=== PATIENT | female | born 1945 | race Caucasian/White ===

== ENCOUNTER 2022-07-06 15:57 | Outpatient (CLI) | payer MEDICARE, OTHER, SELFPAY ==
--- NOTE | 2022-07-06 16:26 | ECG_ITS ---
Measurements Intervals [place] Rate: 83 P: 52 ND: 166 QRS: -11 QRSD: 82 T: 25 QT: 363 QTc: 428 Interpretive Statements SINUS RHYTHM POSSIBLE LEFT ATRIAL ENLARGEMENT LOW QRS VOLTAGE IN PRECORDIAL LEADS BASELINE WANDER- III, AVF BORDERLINE ECG NO PREVIOUS ECG AVAILABLE FOR COMPARISON Electronically Signed On 07-06-2022 21:08:46 CDT by Silvano Rayo D.O.
[2022-07-06 16:29] LABS: Basophils Percent Auto 0.4 % (0.2-1.2); Eosinophils Absolute Auto 0.1 K/mm3 (0-0.3); Hematocrit 40.4 % (37.0-47.0); Hemoglobin 13.2 g/dL (12.0-15.0); Immature Granulocyte Absolute 0.03 K/mm3 (0.00-0.031); Immature Granulocyte Percent A 0.3 % (0-0.5); Lymphocytes Absolute Auto 2.44 K/mm3 (0.9-3.2); Lymphocytes Percent Auto 26.9 % (18.3-44.2); Mean Corpuscular HGB Conc 32.7 g/dl (32-36); Mean Corpuscular Hemoglobin 27.8 pg (26-34); Mean Corpuscular Volume 85.1 fl (80-100); Mean Platelet Volume 10.9 fl (7.4-10.4); Monocytes Absolute Auto 1.1 K/mm3 (0.1-0.6); Neutrophils Absolute Auto 5.4 K/mm3 (1.3-6.7); Neutrophils Percent Auto 59.4 % (45.5-73.1); Platelet Count Result 194 k/mm3 (150-375); Red Blood Count 4.75 M/mm3 (4.2-5.4); Red Cell Distribution Width 14.2 % (11.5-14.5); White Blood Count 9.1 K/mm3 (4.5-10.0)
[2022-07-06 16:30] LABS: Appearance Urine Clear (Clear); Bilirubin Urine Negative (Negative); Blood Urine Negative (Negative); Color Urine Yellow (Yellow); Glucose Urine UA Negative (Negative); Ketones Urine Negative (Negative); Leukocyte Esterase Ur Negative LEU/UL (Negative); Nitrate Urine Negative (Negative); Protein Urine Negative (Negative); Specific Grav Ur 1.007 (1.001-1.035); Urobilinogen Urine 0.2 mg/dL (<2.0); pH Urine 7.5 (5.0-9.0)
[2022-07-06 16:40] LABS: Add Urine Microscopic? NO
[2022-07-06 16:48] LABS: Anion Gap 7 mmol/L (8-16); Blood Urea Nitrogen 14 mg/dL (7-17); Calcium 9.3 mg/dL (8.4-10.2); Carbon Dioxide 27 mmol/L (22-30); Chloride 101 mmol/L (98-107); Estimated Glomerular Filt Rate > 60; Glucose 101 mg/dL (65-110); Sodium 135 mmol/L (137-145)
== END 2022-07-06 15:58 | disposition home or self-care (01) ==
PROVIDERS: PCP Family Medicine; Visit Provider Nurse Practitioner Family
DX: M17.12 Unilateral primary osteoarthritis, left knee (principal); M25.569 Pain in unspecified knee; M17.11 Unilateral primary osteoarthritis, right knee
CPT/HCPCS: 36415; 80048; 81003; 85025; 93005

== ENCOUNTER 2022-11-29 12:00 | Outpatient (CLI) | payer MEDICARE, OTHER, SELFPAY ==
[2022-11-29 13:41] LABS: Basophils Percent Auto 0.3 % (0.2-1.2); Eosinophils Absolute Auto 0.1 K/mm3 (0-0.3); Eosinophils Percent Auto 0.8 % (0-4.4); Hematocrit 36.5 % (37.0-47.0); Hemoglobin 11.9 g/dL (12.0-15.0); Immature Granulocyte Absolute 0.04 K/mm3 (0.00-0.031); Immature Granulocyte Percent A 0.5 % (0-0.5); Lymphocytes Absolute Auto 1.46 K/mm3 (0.9-3.2); Lymphocytes Percent Auto 18.7 % (18.3-44.2); Mean Corpuscular HGB Conc 32.6 g/dl (32-36); Mean Corpuscular Hemoglobin 28.8 pg (26-34); Mean Corpuscular Volume 88.4 fl (80-100); Mean Platelet Volume 10.5 fl (7.4-10.4); Monocytes Percent Auto 13.3 % (2.6-8.5); Neutrophils Absolute Auto 5.2 K/mm3 (1.3-6.7); Neutrophils Percent Auto 66.4 % (45.5-73.1); Platelet Count Result 171 k/mm3 (150-375); Red Blood Count 4.13 M/mm3 (4.2-5.4); Red Cell Distribution Width 13.5 % (11.5-14.5); White Blood Count 7.8 K/mm3 (4.5-10.0)
[2022-11-29 13:47] LABS: Appearance Urine Clear (Clear); Bilirubin Urine Negative (Negative); Blood Urine Negative (Negative); Color Urine Yellow (Yellow); Glucose Urine UA Negative (Negative); Ketones Urine Negative (Negative); Leukocyte Esterase Ur Negative LEU/UL (Negative); Nitrate Urine Negative (Negative); Protein Urine Negative (Negative); Specific Grav Ur 1.014 (1.001-1.035); Urobilinogen Urine 0.2 mg/dL (<2.0)
[2022-11-29 13:50] LABS: Prothrombin Time 14.2 Seconds (11.1-14.7)
[2022-11-29 13:53] LABS: Albumin Level 4.2 g/dL (3.5-5.1); Anion Gap 7 mmol/L (8-16); Blood Urea Nitrogen 19 mg/dL (7-17); Calcium 8.8 mg/dL (8.4-10.2); Carbon Dioxide 27 mmol/L (22-30); Chloride 99 mmol/L (98-107); Estimated Glomerular Filt Rate 53; Glucose 100 mg/dL (65-110); Potassium 4.1 mmol/L (3.4-5.0); Sodium 133 mmol/L (137-145)
[2022-11-29 13:55] LABS: Hemoglobin A1C 5.3 % (<5.7)
[2022-11-29 13:57] LABS: Urine Cotinine NEGATIVE
[2022-11-29 13:59] LABS: Add Urine Microscopic? NO
== END 2022-11-29 12:01 | disposition home or self-care (01) ==
LOC: ANHSURGERY 12:08
PROVIDERS: PCP Family Medicine; Visit Provider Orthopaedic Surgery
DX: M17.12 Unilateral primary osteoarthritis, left knee (principal); Z01.818 Encounter for other preprocedural examination
CPT/HCPCS: 80048; 80307; 81003; 82040; 83036; 85025; 85610; 85730; 86850; 86900; 86901; 87081

== ENCOUNTER 2022-12-13 15:17 | Inpatient (IN) | payer MEDICARE, OTHER, SELFPAY ==
[2022-11-29 12:15] VITALS: BMI 37.8
--- NOTE | 2022-11-29 12:49 | PC.NURSE ---
Addendum entered by Kellen Jacobson RN 11/29/22 13:00: USE BREO INHALER THE MORNING OF SURGERY Original Note: Report to the Outpatient Waiting Room, entrance under the [facility] pavilion located off [facility], at time ___0900____ on date __12/12/22 . Planned Procedure Time: __1100 . Time changes happen often and if your time is changed the preop area will call you the afternoon before. - You and your visitor will be asked to self-screen and do not enter if you have any COVID symptoms. - A mask is optional within the hospital at this time. Patients may have clear liquids (water, carbonated beverages, clear teas, apple juice) until 3 hours prior to surgery with a maximum of 20 ounces. - No food from midnight until time of surgery - Infants may have breast milk until 4 hours before surgery, infant formula 6 hours prior to surgery. - Children will be allowed to drink immediately following surgery. If applicable, please bring a bottle or sippy cup to assist with drinking. Juice, water, soda, and popsicles are readily available. For infants on formula, please bring formula the day of surgery. Pacifiers are allowed. Take the following medications with a SIP of water the morning of surgery: ____GABAPENTIN,SERTRALNE DO NOT STOP ANY OF YOUR OTHER PRESCRIPTION MEDICATIONS PRIOR TO SURGERY ?EXCEPT THE FOLLOWING Medications to discontinue per physician __MELOXICAM PER DR ARMSTRONG, ALL VITAMINS AND SUPPLEMENTS 3 DAYS PRE OP. LAST DOSE 12/08/22 __ Please no make-up, nail micronesian, hairspray, perfume, deodorant, or body powder the day of surgery. No jewelry (including any body piercings) or valuables the day of surgery, leave them at home. Please take a shower or bath the night before, or the morning of, surgery with an antibacterial soap. Wear comfortable, loose fitting clothing. Children are encouraged to wear pajamas. - Jewelry must be removed prior to entering the operating room. Rings and piercings that are not removed may be cut off. - The hospital will not accept responsibility for valuables. - Please leave all valuables, including medications, at home the day of surgery. If you are going home after surgery, a licensed truck driver rubbish collector must drive you home. - NO public transportation without another adult if you receive anesthesia. - We recommend that an adult stay with you for 24 hours following discharge. - We also recommend that you do not drive, make important decision, drink alcoholic beverages, or take any drugs that were not prescribed by your health care provider for at least 24 hours after your discharge time. For Pediatric surgeries, we recommend two adults accompany the child home. Follow any additional instructions given to you from your surgeon. If you or anyone in your household have experienced Covid symptoms in the past week, please notify your surgeon or the nurse liaison at the phone number below for possible testing. VERBAL AND WRITTEN instructions given to __PATIENT AND DAUGHTER PABLITO and asked if any additional questions and then verbalized understanding. Patient advised to call surgeon office or pre surgery nurse liaison [phone] if any additional questions.
[2022-11-29 13:10] VITALS: BP 126/62; PULSE 74; RESP 18; TEMP 36.7; O2SAT 96
[2022-12-12] VITALS (11 sets, daily range): BP systolic 111–159; BP diastolic 52–89; PULSE 78–105; RESP 16–20; TEMP 36.4–36.8; O2SAT 93–100
--- NOTE | 2022-12-12 07:20 | WPDHPUPDATE1 ---
History and Physical Update Update Date/Time: 12/12/22 07:20 History and Physical has been reviewed, including an updated exam of the patient. There are NO changes in the patient's condition. Risks, benefits, and alternatives have been discussed and questions answered. Patient agrees to proceed with procedure.
[2022-12-12] MEDS: LACTATED RINGERS 1,000 ML 30 ML IV CONT ×2 (10:15→14:50)
[2022-12-12] MEDS: ACETAMINOPHEN 500 MG TABLET 1000 MG PO (11:14)
[2022-12-12] MEDS: TRANEXAMIC ACID 1,000MG/ISO100 1,000 MG/100 ML BAG 200 MG IVPB (11:14)
--- NOTE | 2022-12-12 11:41 | WPDANESEPPF ---
Anes - Initial Pre Proc Eval Procedure: Operation Date: 12/12/22 11:00 Proposed Procedures p Left Total Knee Arthroplasty - Natanael Key MD Date/Time: 12/12/22 11:41 Surgeon: Natanael Key MD Pre Op Diagnosis: left knee DJD Patient Data Age: 77 Gender: F Height: 1.6 m Weight: 95.8 kg Last Vital Signs Temp 36.6 C 12/12/22 09:30 Pulse 78 12/12/22 09:30 Resp 18 12/12/22 09:30 BP 151/60 H 12/12/22 09:30 Pulse Ox 96 12/12/22 09:30 O2 Del Method Room Air 12/12/22 09:30 Allergies Allergy/AdvReac Type Severity Reaction Status Date / Time No Known Allergies Allergy Verified 12/12/22 11:16 Home Medications Medication Instructions Recorded Confirmed Type ascorbic acid (vitamin C) 1,000 mg 1 g PO DAILY 07/20/21 12/12/22 History tablet atorvastatin 40 mg tablet 40 mg PO HS 07/20/21 12/12/22 History calcium carbonate 600 mg calcium 600 mg PO DAILY 07/20/21 12/12/22 History (1,500 mg) tablet cetirizine 10 mg capsule (Zyrtec) 10 mg PO DAILY PRN Allergy Symptoms 07/20/21 12/12/22 History fluticasone furoate 100 1 inh inhalation DAILY 07/20/21 12/12/22 History mcg-vilanterol 25 mcg/dose inhalation powder (Breo Ellipta) glucosamine sulfate 500 mg capsule 500 mg PO DAILY 07/20/21 12/12/22 History montelukast 10 mg tablet 10 mg PO DAILY 07/20/21 12/12/22 History jfskbqay-kyxv-pjxh 8 mg-folic 400 1 tablet PO DAILY 07/20/21 12/12/22 History mcg-K 50 mcg-lutein 300 mcg tablet (Centrum Silver Women) omeprazole 40 mg capsule,delayed 40 mg PO DAILY 07/20/21 12/12/22 History release sertraline 100 mg tablet 100 mg PO DAILY 07/20/21 12/12/22 History triamterene 37.5 1 cap PO DAILY 07/20/21 12/12/22 History mg-hydrochlorothiazide 25 mg capsule meloxicam 7.5 mg tablet See Rx Instructions .Route 10/31/22 12/12/22 Rx .COMPLEX #60 tabs acetaminophen 650 mg 1,300 mg PO Q12H PRN Pain 11/29/22 12/12/22 History tablet,extended release cyanocobalamin (vitamin B-12) 5,000 mcg PO DAILY 11/29/22 12/12/22 History 5,000 mcg capsule gabapentin 100 mg capsule 100 mg PO TID 11/29/22 12/12/22 History trazodone 50 mg tablet 50 mg PO HS 11/29/22 12/12/22 History chlorhexidine gluconate 4 % 1 applic topical DAILY #237 mL 12/05/22 12/12/22 Rx topical liquid (Hibiclens) Patient hx anesthesia problems: none Family hx anesthesia problems: none Results Review: All pre-operative results and documents have been reviewed as part of the pre-operative evaluation. [facility] Past Medical History Medical History (Updated 12/12/22 @ 11:41 by Hakeem Lowery MD) Left knee DJD Obesity Right knee DJD Surgical History Surgical History History of breast surgery Benign tumor removed from R breast, 1970 History of carpal tunnel surgery B, performed at the same time, 2001 History of cataract surgery B surgery, [facility], 2014 History of hysterectomy Left ovary not removed, 1981 History of knee surgery L knee, bone fragment removed, 1995 History of spinal surgery Fusion of L3-L5/tail bone, 04/28/2019, Dr. Severiano Talley, [place]. Removal of herniated C5 and C6 discs, Dr. Sam Santoyo, [place], 1999 History of total right hip arthroplasty Dr. Kelton Velasquez, [place], [place], 09/14/2016 Social History Social History Smoking packs per day: 2 Smoking cigarettes per day: 40.0 Years smoked: 10 Smoking pack-years: 20.00 Smoking status: Former smoker Tobacco type: cigarettes Smoking end date: 02/27/72 Additional smoking assessment comments: DENIES ANY FORM OF TOBACCO USE Alcohol intake: current Drinks per week: 1 Substance use: unknown Living arrangements: alone Occupation/Education: retired Gender identity (if verbalized by the patient): Female Spiritual care concerns: No Anes - Eval Final PreProcedure Day of Procedure 12/12/22
[2022-12-12] MEDS: ceFAZolin 2 GM/D5W 50 ML 2 GM/50 ML BAG IVPB ×2 (12:13→21:09)
[2022-12-12] MEDS: GENTAMICIN BONE CEMENT REFOBACIN 1 EACH TOPICAL (13:10)
[2022-12-12] MEDS: TRANEXAMIC ACID 1,000 MG/10 ML AMPUL 1000 MG IV PUSH (13:54)
--- NOTE | 2022-12-12 14:46 | W.PM.PROC2 ---
Procedure Note - Detailed Date of Procedure 12/12/22 Pre-op Diagnosis left knee DJD Post-op Diagnosis Same Procedure Performed L TKA Surgeon Natanael Key MD Anesthesia General Description of Procedure THE LEFT KNEE WAS PREPPED AND DRAPED IN THE STERILE FASHION. THERE WAS A 20 DEGREE FLEXION CONTRACTURE. A MIDLINE SKIN INCISION WAS MADE. A MEDIAL PARAPATELLAR ARTHROTOMY WAS MADE. THE PATELLA WAS EVERTED. THERE WAS TRICOMPARTMENT DJD. THERE WAS MINIMAL PATELLA DJD. AN INTRAMEDULLARY NEGRO WAS PLACED IN THE FEMUR. A DISTAL FEMORAL CUT WAS MADE IN 5 DEGREES OF VALGUS REMOVING APPROXIMATELY 11 MM OF BONE FROM THE DISTAL FEMUR. THE FEMUR WAS SIZED TO 62.5. A 62.5 FEMORAL CUTTING BLOCK WAS PLACED IN 3 DEGREES OF EXTERNAL ROTATION AND IN ALIGNMENT WITH RAMESH'S LINE AND THE TRANSEPICONDYLAR AXIS. ANTERIOR POSTERIOR AND CHAMFER CUTS WERE MADE. THE CUTS WERE EXCELLENT. NEXT AN INTRAMEDULLARY CUTTING GUIDE WAS PLACED IN THE TIBIA. A TRANS TIBIAL CUT WAS MADE ALONG THE LONG AXIS OF THE TIBIA. APPROXIMATELY 10 MM OF BONE WAS REMOVED FROM THE HIGH SIDE OF THE TIBIA. THE TIBIA WAS THEN PLANED TO A SMOOTH SURFACE. POSTERIOR FEMORAL OSTEOPHYTES WERE REMOVED FROM THE FEMORAL CONDYLES. A 71 TIBIAL TRIAL WAS PLACED IN ALIGNMENT WITH THE 1/3 MEDIAL ASPECT OF THE TIBIAL TUBERCLE. THEN A 62.5 FEMORAL TRIAL COMPONENT WAS PLACED. BOTH HAD EXCELLENT FITS. EVENTUALLY A 10 MM CR POLYETHYLENE TRIAL COMPONENT WAS PLACED. THE KNEE WAS TAKEN THROUGH A RANGE OF MOTION. THE KNEE CAME OUT TO FULL EXTENSION. THERE WAS NO ABNORMAL TILT TO THE PATELLA. THERE WAS GOOD A/P AND VARUS/VALGUS STABILITY. THERE WAS NO EXCESSIVE ROLL BACK WITH FLEXION. THE TRIAL COMPONENTS WERE REMOVED. THEN A 62.5 FEMORAL COMPONENT AND 71 TIBIAL COMPONENT WITH A 10 CR POLYETHYLENE COMPONENT WERE CEMENTED INTO PLACE. ONCE THE CEMENT WAS HARD THE KNEE WAS TAKEN THROUGH A ROM AGAIN AND FOUND TO BE STABLE WITH NO PATELLA TILT NO EXCESSIVE ROLL BACK WITH FLEXION AND GOOD STABILITY WITH COMPLETE AND FULL EXTENSION. THE KNEE WAS IRRIGATED WITH STERILE BETADINE AND WATER FOR ABOUT 3 MINUTES. THE BLEEDERS WERE CAUTERIZED. THE ARTHROTOMY WAS REPAIRED WITH NUMBER 1 VICRYL. THE SUB CUTANEOUS LAYER WITH 2-0 VICRYL AND THE SKIN WITH JEN. THE WOUND WAS WASHED AND A STERILE DRESSING WAS APPLIED. PATIENT WAS EXTUBATED. Estimated Blood Loss -150.0 Pathology None sent Complications No immediate complications Condition Stable Disposition PACU
[2022-12-12] MEDS: fentaNYL CITRATE INJ (*CRX) 100 MCG/2 ML VIAL 25 MCG IV PUSH ×5 (14:58→15:53)
--- NOTE | 2022-12-12 16:34 | ADMGEN ---
This patient, Olivia Sanches, was admitted to Medical Room 258-01. Patient/family oriented to hospital policies and general routines including ID bracelet, bed and alarms, visiting hours, pain management, procedures, bathroom and other care routines, personal items, smoking policy, room service/diet, and visiting hours. Information on how to activate the Rapid Response Team has been discussed. Patient/Family are encouraged to report perceived risks to care and to ask questions if they do not understand what they are told or what they should do.
[2022-12-12] MEDS: CELECOXIB 200 MG CAPSULE PO (17:23)
[2022-12-12] MEDS: oxyCODONE/ACETAMINOPHEN (*CRX) 5-325 MG TABLET 1 TABLET PO (17:24)
[2022-12-12] MEDS: ASPIRIN 325 MG ENTERIC TABLET PO (21:09)
[2022-12-12] MEDS: traZODone HCL 50 MG TABLET PO (21:09)
[2022-12-12] MEDS: FAMOTIDINE 20 MG TABLET PO (21:09)
[2022-12-12] MEDS: ATORVASTATIN 40 MG TABLET PO (21:09)
[2022-12-13] VITALS (9 sets, daily range): BP systolic 104–144; BP diastolic 42–67; PULSE 88–95; RESP 16–20; TEMP 36.5–37; O2SAT 92–98
--- NOTE | ~2022-12-13 | CT_ITS ---
EXAMINATION: CT abdomen pelvis w con INDICATION: Lower abdominal pain and cramping TECHNIQUE: Computed tomographic images of the abdomen and pelvis were obtained after the administrati on of 100 cc of Omnipaque 350 intravenous contrast. The dose-length product (DLP) was 1166.18 mGy-cm. Automated exposure control and iterative reconstruction technique were employed. COMPARISON: None available FINDINGS: Minimal dependent atelectasis is present in the lung bases. The heart size is normal. Punct ate calcifications in an otherwise normal spleen likely represent healed granulomatous disease. The l iver, pancreas, and adrenal glands are normal. The gallbladder is mildly distended. There appears to be adenomyomatosis of the gallbladder fundus. The kidneys are unremarkable. No pathologically enlarge d abdominal or pelvic lymph nodes are identified. No free intraperitoneal gas or evidence of bowel ob struction. Colonic diverticulosis is present without evidence of diverticulitis. The appendix is norm al. There is severe lumbar spondylosis. There are changes of posterior fusion and laminectomy from L3 through S1. A right total hip arthroplasty is noted. There is an umbilical hernia containing fat. There is a moderate amount of inflammatory change in the flexor musculature of the partially visualiz ed left leg. There are foci of gas in the muscle and fat. IMPRESSION: 1. Moderate inflammatory change in the flexor musculature of the partially visualized left leg includ ing foci of gas in the muscles and fat planes. Finding could reflect intramuscular abscess versus mitra nge from recent total knee arthroplasty. Recommend surgical evaluation and close clinical monitoring for compartment syndrome. These findings and recommendations were discussed with PITO Arreola on [place] at 1945 hours on 12/14/2022. 2. Mild gallbladder distention which could be due to fasting state. Correlate for right upper quadran t tenderness. Reviewed, dictated and finalized at location F. IMPRESSION: 1. Moderate inflammatory change in the flexor musculature of the partially visu alized left leg including foci of gas in the muscles and fat planes. Finding co uld reflect intramuscular abscess versus change from recent total knee arthropl asty. Recommend surgical evaluation and close clinical monitoring for compartme nt syndrome. These findings and recommendations were discussed with PITO Arreola on [address] [place] [address] at 1945 hours on 12/14/2022. 2. Mild gallbladder distention which could be due to fasting state. Correlate f or right upper quadrant tenderness.
--- NOTE | ~2022-12-13 | XR_ITS ---
EXAMINATION: [id number] DATE: 12/12/2022 14:59 INDICATION: Total left knee arthroplasty. Postop. TECHNIQUE: 2 views of left knee were obtained. COMPARISON: Left knee radiographs 11/13/2022 FINDINGS: There is a total left knee arthroplasty in near-anatomic alignment without patellar resurfa cing. No fracture. There is gas in the joint and soft tissues, consistent with recent surgery. Anteri or skin geovany are noted. IMPRESSION: 1. Total left knee arthroplasty in near-anatomic alignment. Reviewed, dictated and finalized at location E.
[2022-12-13 05:15] LABS: Basophils Percent Auto 0.1 % (0.2-1.2); Hematocrit 31.3 % (37.0-47.0); Immature Granulocyte Absolute 0.15 K/mm3 (0.00-0.031); Immature Granulocyte Percent A 0.7 % (0-0.5); Lymphocytes Absolute Auto 1.47 K/mm3 (0.9-3.2); Lymphocytes Percent Auto 6.5 % (18.3-44.2); Mean Corpuscular HGB Conc 31.9 g/dl (32-36); Mean Corpuscular Hemoglobin 28.2 pg (26-34); Mean Corpuscular Volume 88.4 fl (80-100); Mean Platelet Volume 10.9 fl (7.4-10.4); Monocytes Absolute Auto 2.1 K/mm3 (0.1-0.6); Monocytes Percent Auto 9.4 % (2.6-8.5); Neutrophils Absolute Auto 18.9 K/mm3 (1.3-6.7); Neutrophils Percent Auto 83.3 % (45.5-73.1); Platelet Count Result 194 k/mm3 (150-375); Red Blood Count 3.54 M/mm3 (4.2-5.4); Red Cell Distribution Width 13.2 % (11.5-14.5); White Blood Count 22.6 K/mm3 (4.5-10.0)
[2022-12-13 05:29] LABS: Anion Gap 6 mmol/L (8-16); Blood Urea Nitrogen 16 mg/dL (7-17); Calcium 8.8 mg/dL (8.4-10.2); Carbon Dioxide 27 mmol/L (22-30); Chloride 98 mmol/L (98-107); Estimated CRCL calculation 55 ml/min; Estimated Glomerular Filt Rate > 60; Glucose 116 mg/dL (65-110); Potassium 3.9 mmol/L (3.4-5.0); Sodium 131 mmol/L (137-145)
[2022-12-13] MEDS: ceFAZolin 2 GM/D5W 50 ML 2 GM/50 ML BAG IVPB ×2 (05:37→12:14)
[2022-12-13] MEDS: CYANOCOBALAMIN 1,000 MCG TABLET 5000 MCG PO (08:31)
[2022-12-13] MEDS: SENNA/DOCUSATE SODIUM TABLET 2 TAB PO ×2 (08:31→16:36)
[2022-12-13] MEDS: TRIAMTERENE 37.5 MG/HCTZ 25 MG (MAXZIDE) TABLET 1 TAB PO (08:32)
[2022-12-13] MEDS: ASCORBIC ACID 500 MG TABLET 1000 MG PO (08:32)
[2022-12-13] MEDS: SERTRALINE HCL 50 MG TABLET 100 MG PO (08:32)
[2022-12-13] MEDS: CALCIUM CARBONATE (OSCAL) 500 MG TABLET PO (08:32)
[2022-12-13] MEDS: ASPIRIN 325 MG ENTERIC TABLET PO (08:32)
[2022-12-13] MEDS: CELECOXIB 200 MG CAPSULE PO ×2 (08:32→16:36)
[2022-12-13] MEDS: PANTOPRAZOLE 40 MG TABLET PO ×2 (08:33→20:07)
[2022-12-13] MEDS: oxyCODONE/ACETAMINOPHEN (*CRX) 5-325 MG TABLET 1 TABLET PO (08:33)
[2022-12-13] MEDS: FAMOTIDINE 20 MG TABLET PO ×2 (08:33→20:07)
[2022-12-13] MEDS: polyethylene glycoL 3350 17 GM POWD.PACK PO (08:34)
--- NOTE | 2022-12-13 10:08 | P.PNAN_ITS ---
Anes - Prog Note Post-Op Date/Time: 12/13/22 10:08 Cardiovascular status: normal Respiratory status: normal Airway patency: baseline Mental status: baseline Post-Op hydration status: normal Vital Signs: Last Vital Signs Temp 36.9 C 12/13/22 04:03 Pulse 90 12/13/22 08:29 Resp 20 12/13/22 04:03 BP 144/55 H 12/13/22 08:29 Pulse Ox 93 12/13/22 08:29 O2 Del Method Room Air 12/13/22 08:21 O2 Flow Rate 10 12/12/22 15:20 Pain Score (VAS): 0 I/O: Intake & Output 12/12/22 12/13/22 12/13/22 23:59 07:59 15:59 Intake Total 450 360 Output Total 75 Balance 375 360 Laboratory Tests 12/13/22 04:54 12/13/22 04:54 12/13/22 04:54 WBC 22.6 H RBC 3.54 L Hgb 10.0 L Hct 31.3 L MCV 88.4 MCH 28.2 MCHC 31.9 L RDW 13.2 Plt Count 194 MPV 10.9 H Immature Gran % (Auto) 0.7 H Neut % (Auto) 83.3 H Lymph % (Auto) 6.5 L Benson % (Auto) 9.4 H Eos % (Auto) 0.0 Baso % (Auto) 0.1 L Lymph # (Auto) 1.47 Benson # (Auto) 2.1 H Eos # (Auto) 0.0 Baso # (Auto) 0.0 Abs Immat Gran (auto) 0.15 H Absolute Neuts (auto) 18.9 H Absolute Nucleated RBC 0.0 Nucleated RBC % 0.0 Sodium 131 L Potassium 3.9 Chloride 98 Carbon Dioxide 27 Anion Gap 6 L BUN 16 Creatinine 0.80 Estim Creat Clear Calc 55 Estimated GFR > 60 Glucose 116 H Calcium 8.8 Post-procedural complaints: none Patient Feedback: Patient satisfied with anesthetic care.
[2022-12-13] MEDS: oxyCODONE/ACETAMINOPHEN (*CRX) 5-325 MG TABLET 2 TABLET PO (12:49)
[2022-12-13] MEDS: GABAPENTIN 100 MG CAPSULE PO ×2 (13:33→16:36)
--- NOTE | 2022-12-13 14:13 | PM.PNORT ---
Progress Note: A&P Assessment and Plan (1) Left knee DJD: Qualifiers: Osteoarthritis type: primary Qualified Code(s): M17.12 - Unilateral primary osteoarthritis, left knee Code(s): M17.12 - Unilateral primary osteoarthritis, left knee Status: Acute Assessment and Plan: POD 1 DOING WELL BUT WITH SLOW PROGRESS WITH PT. SHE WILL BE REEVALUATED TOMORROW FOR POSSIBLE REHAB VS SNF. Subjective Subjective Date/Time Seen: 12/13/22 14:13 Interval history: POD 1 DOING WELL. SLOW PROGRESS WITH PT. NO CALF PAIN Exam Extrem: Other: VSS AFEBRILE DRESSING DRY NV INTACT NEG HOMANS SIGN CALF AND THIGH SOFT NON TENDER Objective Data Vital Signs Vital Signs: Vital Signs - 24 hr 12/12/22 14:50 12/12/22 15:05 12/12/22 15:20 Temperature 36.7 C Pulse Rate 104 H 105 H 98 Respiratory Rate 18 16 18 Blood Pressure 149/89 H 159/73 H 149/68 H Pulse Oximetry 98 100 100 Oxygen Delivery Simple Face Mask Simple Face Mask Simple Face Mask Oxygen Flow Rate 10 10 10 12/12/22 15:35 12/12/22 15:50 12/12/22 16:05 Temperature 36.8 C Pulse Rate 91 85 91 Respiratory Rate 18 16 16 Blood Pressure 143/69 H 139/58 L 133/63 Pulse Oximetry 96 95 95 Oxygen Delivery Room Air Room Air Room Air Oxygen Flow Rate 12/12/22 16:52 12/12/22 17:09 12/12/22 18:02 Temperature 36.4 C L 36.6 C Pulse Rate 83 95 Respiratory Rate 16 16 Blood Pressure 128/62 111/52 L Pulse Oximetry 93 96 95 Oxygen Delivery Room Air Oxygen Flow Rate 12/12/22 21:55 12/13/22 00:10 12/12/22 20:00 Temperature 36.4 C 37.0 C Pulse Rate 91 92 Respiratory Rate 20 20 Blood Pressure 121/58 L 104/44 L Pulse Oximetry 97 98 Oxygen Delivery Room Air Oxygen Flow Rate 12/13/22 04:03 12/13/22 08:29 12/13/22 08:21 Temperature 36.9 C Pulse Rate 95 90 Respiratory Rate 20 Blood Pressure 128/51 L 144/55 H Pulse Oximetry 97 93 Oxygen Delivery Room Air Oxygen Flow Rate 12/13/22 10:24 12/13/22 12:48 12/13/22 08:30 Temperature 36.8 C Pulse Rate 95 Respiratory Rate 16 Blood Pressure 119/47 L 136/67 Pulse Oximetry 96 Oxygen Delivery Room Air Oxygen Flow Rate Intake/Output Intake/Output: Intake & Output 12/10/22 12/11/22 12/12/22 12/13/22 23:59 23:59 23:59 23:59 Intake Total 600 530 Output Total 75 Balance 525 530 Meds/Results Medications: Active Medications Generic Name Dose Route Start Last Admin Trade Name Freq PRN Reason Stop Dose Admin Ascorbic Acid 1,000 mg 12/13/22 09:00 12/13/22 08:32 Ascorbic Acid 500 Mg Tablet PO 1,000 mg DAILY NELLIE Administration Aspirin 325 mg 12/12/22 21:00 12/13/22 08:32 Aspirin 325 Mg Enteric Tablet PO 325 mg Q12HR NELLIE Administration Atorvastatin Calcium 40 mg 12/12/22 21:00 12/12/22 21:09 Atorvastatin 40 Mg Tablet PO 40 mg HS NELLIE Administration Calcium Carbonate 500 mg 12/13/22 09:00 12/13/22 08:32 Calcium Carbonate (Oscal) 500 Mg Tablet PO 01/12/23 08:59 500 mg DAILY NELLIE Administration Celecoxib 200 mg 12/12/22 17:00 12/13/22 08:32 Celecoxib 200 Mg Capsule PO 200 mg BIDWM NELLIE Administration Cyanocobalamin 5,000 mcg 12/13/22 09:00 12/13/22 08:31 Cyanocobalamin 1,000 Mcg Tablet PO 5,000 mcg DAILY NELLIE Administration Diazepam 5 mg 12/12/22 16:10 Diazepam (*Crx) 5 Mg Tablet PO Q8H PRN Spasms Diphenhydramine HCl 25 mg 12/12/22 16:10 Diphenhydramine Hcl Inj 50 Mg/Ml Vial IV PUSH Q6H PRN Itching Famotidine 20 mg 12/12/22 21:00 12/13/22 08:33 Famotidine 20 Mg Tablet PO 20 mg Q12HR NELLIE Administration Gabapentin 100 mg 12/13/22 13:00 12/13/22 13:33 Gabapentin 100 Mg Capsule PO 100 mg TID NELLIE Administration Loratadine 10 mg 12/12/22 16:10 Loratadine 10 Mg Tablet PO DAILY PRN Allergy Symptoms Naloxone HCl 0.1 mg 10/17/23 16:10 Naloxone Hcl 0.4 Mg/Ml Vial IV PUSH Q2M PRN O
[2022-12-13] MEDS: ASPIRIN 81 MG CHEWABLE TABLET PO (20:07)
[2022-12-13] MEDS: ATORVASTATIN 40 MG TABLET PO (20:07)
[2022-12-13] MEDS: traZODone HCL 50 MG TABLET PO (20:07)
[2022-12-14 08:04] VITALS: BP 128/56; PULSE 98; RESP 17; TEMP 37.3; O2SAT 95
[2022-12-14] MEDS: CYANOCOBALAMIN 1,000 MCG TABLET 5000 MCG PO (09:17)
[2022-12-14] MEDS: SERTRALINE HCL 50 MG TABLET 100 MG PO (09:17)
[2022-12-14] MEDS: ASPIRIN 81 MG CHEWABLE TABLET PO ×2 (09:17→21:52)
[2022-12-14] MEDS: GABAPENTIN 100 MG CAPSULE PO ×3 (09:17→18:06)
[2022-12-14] MEDS: ASCORBIC ACID 500 MG TABLET 1000 MG PO (09:17)
[2022-12-14] MEDS: FAMOTIDINE 20 MG TABLET PO ×2 (09:17→20:58)
[2022-12-14] MEDS: CALCIUM CARBONATE (OSCAL) 500 MG TABLET PO (09:17)
[2022-12-14] MEDS: TRIAMTERENE 37.5 MG/HCTZ 25 MG (MAXZIDE) TABLET 1 TAB PO (09:18)
[2022-12-14] MEDS: oxyCODONE/ACETAMINOPHEN (*CRX) 5-325 MG TABLET 1 TABLET PO ×2 (09:18→21:14)
[2022-12-14] MEDS: PANTOPRAZOLE 40 MG TABLET PO ×2 (09:18→20:59)
[2022-12-14] MEDS: CELECOXIB 200 MG CAPSULE PO ×2 (09:18→18:06)
[2022-12-14 09:19] LABS: Hematocrit 29.4 % (37.0-47.0); Hemoglobin 9.7 g/dL (12.0-15.0); Mean Corpuscular Volume 87.8 fl (80-100); Mean Platelet Volume 10.6 fl (7.4-10.4); Platelet Count Result 167 k/mm3 (150-375); Red Blood Count 3.35 M/mm3 (4.2-5.4); Red Cell Distribution Width 13.4 % (11.5-14.5); White Blood Count 20.8 K/mm3 (4.5-10.0)
--- NOTE | 2022-12-14 09:19 | PM.PNORT ---
Progress Note: A&P Assessment and Plan (1) S/P total knee arthroplasty: Qualifiers: Laterality: left Qualified Code(s): Z96.652 - Presence of left artificial knee joint Code(s): Z96.659 - Presence of unspecified artificial knee joint Status: Acute Assessment and Plan: POD #2 : Left TKA Continue PT/OT. WBAT. Walker. HIGH FALL RISK. Continue pain control. Ice knee. Protect skin. DVT prophylaxis with Aspirin 81 mg PO BID- decreased dose due to concern regarding ecchymosis of the left knee per Dr. Key. SCDs. Incentive Spirometry Use reviewed. Monitor Dressing. Change prior to discharge. Bowel Regimen- HOLD due to diarrhea Dispo: Home with Home Health vs. [facility] vs. SNF pending progress with PT/OT and medical clearance (2) History of diverticulitis: Code(s): Z87.19 - Personal history of other diseases of the digestive system Status: Acute Assessment and Plan: Patient has a history of diverticulitis in 2019 requiring bowel rest and hospitalization. Today she complains of lower abdominal pain, cramping and diarrhea. WBC elevated yesterday. Recommended repeat CBC today and hospitalist consult for further medical evaluation. Plan Discussed postoperative labs, vitals, physical exam and radiographs as well as new abdominal complaints and left knee ecchymosis/aspirin regimen with attending MD and patient's surgeon, Dr. Key. Agrees with current plan as indicated above. No further recommendations offered at this time. Subjective Subjective Date/Time Seen: 12/14/22 09:19 Post Op day: 2 Interval history: POD #2: Left TKA Patient with complaints of diarrhea, lower abdominal cramping and pain. Left knee with swelling, tenderness and ecchymosis. Tolerating PO intake well. Concerned about history of diverticulitis and possible recurrence given current symptoms. Review of Systems Constitutional: Constitutional: Reports as per HPI, Denies chills, Denies fever(s) and Reports lethargy Cardiovascular: Cardiovascular: Reports no additional cardiovascular complaints, Denies chest pain and Denies lightheadedness Respiratory: Respiratory: Reports no additional respiratory complaints Gastrointestinal: Gastrointestinal: Reports abdominal pain, Reports bloating and Reports diarrhea Genitourinary: Genitourinary: Reports no additional female genitourinary complaints Musculoskeletal: Musculoskeletal: Reports as per HPI Exam Const: General: comfortable and no acute distress Resp: Effort & Inspection: normal respiratory effort Cardio: Rate: regular rate Rhythm: regular rhythm GI: GI Palp: Yes Soft to palpation, No Tenderness to palpation present (GI) and No Guarding due to palpation present (GI) Skin: General skin exam: wounds noted (see extremity assessment ) Wounds: wounds noted (see extremity assessment ) Neuro: Cognition (Neuro): normal cognition Other: NV intact aside from block. Moves toes. Sensation intact to light touch. +ankle dorsiflexion/plantarflexion. Extrem: Left lower extremity: normal to inspection, normal capillary refill, knee Details: tenderness (diffuse ) Location: of the patella, swelling (moderate consistent to recent surgery ), abnormal ROM (limited due to recent surgery ) Details: pain with active ROM and pain with passive ROM and ecchymosis (moderate ), lower leg (Negative Haley's Sign ), ankle (+ankle dorsiflexion/plantarflexion ) Details: normal to inspection, no edema and normal ROM; no tenderness and no swelling and foot Details: normal capillary refill, toes with normal ROM, vascular exam Details: dorsalis pedis pulse present and motor-sensory exam light-touch normal; no tenderness Other: Incision left TKA dressing c/d/i. No signs of infection. No wound dehiscence. Psych: Mental Status: mental status grossly normal Objective Data Vital Signs Vital Signs: Vital Signs - 24 hr 12/13/22 10:24 12/13/22 12:48 12/13/22 15:00 Temperatu
[2022-12-14] MEDS: FLUTICASONE/SALMETEROL 115-21 MCG INHALER 1 PUFF 2 PUFF INHALATION ×2 (09:23→21:16)
[2022-12-14 09:24] VITALS: O2SAT 94
[2022-12-14 09:31] LABS: Anion Gap 7 mmol/L (8-16); Blood Urea Nitrogen 18 mg/dL (7-17); Calcium 8.8 mg/dL (8.4-10.2); Carbon Dioxide 26 mmol/L (22-30); Chloride 96 mmol/L (98-107); Estimated CRCL calculation 41 ml/min; Estimated Glomerular Filt Rate 48; Glucose 137 mg/dL (65-110); Potassium 3.7 mmol/L (3.4-5.0); Sodium 129 mmol/L (137-145)
[2022-12-14 14:38] VITALS: BP 117/55; PULSE 95; RESP 17; TEMP 36.9; O2SAT 94
--- NOTE | 2022-12-14 16:04 | PM.IMCN ---
Assessment and Plan Assessment and plan (1) Diarrhea: Code(s): R19.7 - Diarrhea, unspecified Status: Acute (2) Left lower quadrant abdominal pain: Code(s): R10.32 - Left lower quadrant pain Status: Acute Plan Problem List 1. diarrhea hx of diverticulitis, PE reveled left suprapubic/groin tenderness with some LLQ involvement CT abd/pelvis w, w/o con 1. Moderate inflammatory change in the flexor musculature of the partially visualized left leg including foci of gas in the muscles and fat planes. Finding could reflect intramuscular abscess versus change from recent total knee arthroplasty. Recommend surgical evaluation and close clinical monitoring for compartment syndrome. These findings and recommendations were discussed with PITO Arreola on [address] [place] [address] at 1945 hours on 12/14/2022. 2. Mild gallbladder distention which could be due to fasting state. Correlate for right upper quadrant tenderness. WBC remains elevated despite being 2 days postop, 20.8 hyponatremia - 129, likely due to hypovolemia. will fluid resus. 1L NS bolus, then 1L at 100 ml/hr monitor CBC, renal function and electrolytes start Metamucil QAM if diarrhea continues, consider stool culture/c. diff culture. most recent atb use on 12/12, ancef 2G given x2. 2. left lower quadrant abdominal pain UA - update see above 3. L knee Arthroplasty surgery performed on 12/12 ortho managing continue PT/OT. Use walker, high fall risk. continue pain control. ice knee, protect skin and monitor dressing DVT prophylaxis: currently managed by Ortho, reduced dose of aspirin to ASA 81 b.i.d. due to concern with volume of swelling and ecchymosis. Continue SCDs. bowel regimen held due to new diarrhea given CT findings: will order lactic acid w/reflex and reassess LLE vasc. Ortho updated. will defer further imaging to ortho. Reassessment at 2330 due to c/f for compartment syndrome on imaging: strong DP pulse, good color to LLE, significant ecchymosis around knee with no change to swelling. no paraesthesias. able to ambulate to the restroom. patient educated on s/s of compartment syndrome and discussed CT findings with patient - no diverticulitis. compartment syndrome v abscess v normal post-surgical changes. all questions answered. RN will monitor vasculature through the night. Chronic Conditions - HTN: Continue to monitor blood pressure. continue Maxzide-25. - continue trazodone, sertraline, omeprazole, Breo inhaler, vitamin B12, Zyrtec, calcium, atorvastatin, vitamin-C, Tylenol Arthritis Diet: regular GI Prophylaxis: famotidine DVT Prophylaxis: SCDs, ASA 81 b.i.d. Lines: pIV Code Status: DNR, per patient. Critical Care Time: I personally spent 35 minutes of direct patient care including (but not limited to) the physical examination, decision-making, bedside evaluation, review of medical records, review of labs and imaging, discussion with nursing staff and other providers for collaborative, critical care management of this patient. HPI Data of Consult Consult date: 12/14/22 Requesting Physician: Natanael Key MD Primary Care Provider: Manuel Garcia, Consult Narrative Reason for consult: abdominal pain, diarrhea, hx of diverticulitis Narrative: Olivia Sanches is a 77 year old female here for left knee total arthroplasty on 12/12 with PMH of HTN, diverticulitis, and DJD of knees. Patient presented here on 12/12 for surgery. She previously failed conservative treatment: intra-articular steroid injections and gel injections. Currently on meloxicam for the pain. Was requiring a cane or walker due to the pain and its subsequent limitations. No immediate postop complications noted. POD #1 - slow progress, no calf pain. reeval tomorrow for rehab v SNF. POD #2 - increased ecchymosis of left knee and swelling of the calf, DVT prophylaxis reduced. Patient now also having diarrhea. Reports
[2022-12-14] MEDS: SENNA/DOCUSATE SODIUM TABLET 2 TAB PO (18:07)
[2022-12-14] MEDS: SODIUM CHLORIDE 0.9% IV 1,000 ML 999 ML IV CONT (18:50)
[2022-12-14 20:09] VITALS: BP 161/64; PULSE 107; RESP 18; TEMP 37.1; O2SAT 97
[2022-12-14] MEDS: SODIUM CHLORIDE 0.9% IV 1,000 ML 100 ML IV CONT (20:57)
[2022-12-14] MEDS: ATORVASTATIN 40 MG TABLET PO (20:59)
[2022-12-14] MEDS: traZODone HCL 50 MG TABLET PO (20:59)
[2022-12-14 21:19] VITALS: O2SAT 94
--- NOTE | 2022-12-14 22:35 | PC.NURSE ---
2044 LT LEG SWELLING NOTED, INFORMED PT NEED FOR ICE THERAPY, CRYO CUFF PLACED ON PT. DR ARMSTRONG AWARE OF SWELLING
--- NOTE | 2022-12-14 23:00 | PC.NURSE ---
URINE COLLECTED WAS CLEAN CATCH NOT CATHETERIZED
[2022-12-14 23:25] LABS: Lactic Acid Reflex 1.5 mmol/L (0.7-2.0)
[2022-12-15 04:53] LABS: Appearance Urine Clear (Clear); Bacteria Urine None Seen /hpf; Bilirubin Urine Negative (Negative); Blood Urine Negative (Negative); Color Urine Yellow (Yellow); Glucose Urine UA Negative (Negative); Ketones Urine Negative (Negative); Leukocyte Esterase Ur Negative LEU/UL (Negative); Need Manual Microscopic Reviewed; Nitrate Urine Negative (Negative); Non Pathogenic Casts 0-2; Protein Urine Negative (Negative); RBC Urine 0-2 /hpf (0-2); Specific Grav Ur 1.027 (1.001-1.035); Squamous Epithelial Cell Urine None seen /hpf (Few); Urobilinogen Urine 0.2 mg/dL (<2.0); WBC Urine 0-5 /hpf; pH Urine 5.5 (5.0-9.0)
[2022-12-15 04:54] LABS: Add Urine Microscopic? YES
[2022-12-15 05:40] LABS: Hematocrit 24.7 % (37.0-47.0); Mean Corpuscular HGB Conc 32.4 g/dl (32-36); Mean Corpuscular Hemoglobin 28.9 pg (26-34); Mean Corpuscular Volume 89.2 fl (80-100); Mean Platelet Volume 11.4 fl (7.4-10.4); Platelet Count Result 143 k/mm3 (150-375); Red Blood Count 2.77 M/mm3 (4.2-5.4); Red Cell Distribution Width 13.5 % (11.5-14.5); White Blood Count 13.9 K/mm3 (4.5-10.0)
[2022-12-15 05:51] LABS: Anion Gap 4 mmol/L (8-16); Blood Urea Nitrogen 17 mg/dL (7-17); Calcium 8.3 mg/dL (8.4-10.2); Carbon Dioxide 27 mmol/L (22-30); Chloride 102 mmol/L (98-107); Estimated CRCL calculation 49 ml/min; Estimated Glomerular Filt Rate 60; Glucose 120 mg/dL (65-110); Magnesium 2.3 mg/dL (1.6-2.3); Potassium 3.3 mmol/L (3.4-5.0); Sodium 133 mmol/L (137-145)
[2022-12-15] MEDS: oxyCODONE/ACETAMINOPHEN (*CRX) 5-325 MG TABLET 1 TABLET PO (06:58)
[2022-12-15 07:54] VITALS: PULSE 95; RESP 18; O2SAT 95
[2022-12-15] MEDS: FLUTICASONE/SALMETEROL 115-21 MCG INHALER 1 PUFF 2 PUFF INHALATION (07:54)
[2022-12-15 07:55] VITALS: BP 111/52; PULSE 95; RESP 16; TEMP 36.7; O2SAT 95
[2022-12-15] MEDS: ASCORBIC ACID 500 MG TABLET 1000 MG PO (08:31)
[2022-12-15] MEDS: CELECOXIB 200 MG CAPSULE PO (08:31)
[2022-12-15] MEDS: CALCIUM CARBONATE (OSCAL) 500 MG TABLET PO (08:32)
[2022-12-15] MEDS: ASPIRIN 81 MG CHEWABLE TABLET PO (08:32)
[2022-12-15] MEDS: GABAPENTIN 100 MG CAPSULE PO ×2 (08:33→15:01)
[2022-12-15] MEDS: SENNA/DOCUSATE SODIUM TABLET 2 TAB PO (08:33)
[2022-12-15] MEDS: FAMOTIDINE 20 MG TABLET PO (08:33)
[2022-12-15] MEDS: PSYLLIUM POWDER PACKET 1 PACKET PO (08:34)
[2022-12-15] MEDS: SERTRALINE HCL 50 MG TABLET 100 MG PO (08:34)
[2022-12-15] MEDS: TRIAMTERENE 37.5 MG/HCTZ 25 MG (MAXZIDE) TABLET 1 TAB PO (08:34)
[2022-12-15] MEDS: PANTOPRAZOLE 40 MG TABLET PO (08:34)
--- NOTE | 2022-12-15 09:19 | PM.PNORT ---
Progress Note: A&P Assessment and Plan (1) S/P total knee arthroplasty: Qualifiers: Laterality: left Qualified Code(s): Z96.652 - Presence of left artificial knee joint Code(s): Z96.659 - Presence of unspecified artificial knee joint Status: Acute Assessment and Plan: POD #3 : Left TKA WBC trending down to 13.9 today. HgB 8.0. Sodium at 133 and Potassium 3.3, medicine team following. Appreciate recommendations. Continue PT/OT. WBAT. Walker. HIGH FALL RISK. Continue pain control. Ice knee. Protect skin. DVT prophylaxis with Aspirin 81 mg PO BID- decreased dose due to concern regarding ecchymosis of the left knee per Dr. Key. Changes to DVT prophylaxis dosing deferred to Dr. Key. SCDs. Incentive Spirometry Use reviewed. Monitor Dressing. Change prior to discharge. Bowel Regimen- HOLD due to diarrhea Dispo: BALDOMERO approved for discharge today. Discharge pending medical clearance and clearance from Dr. Key at this time. (2) Left lower quadrant abdominal pain: Code(s): R10.32 - Left lower quadrant pain Status: Acute Assessment and Plan: Abdominal CT scan reveals moderate inflammatory change in the flexor musculature of the partially visualized left leg including foci of gas in the muscles and fat planes. Radiologist with concerns for compartment syndrome. Clinically, patient has good pedal pulses, sensation intact in the LLE. AROM/PROM of the left knee without severe pain. Continued ecchymosis/swelling of the left knee noted. IR/ER of the left hip without severe pain. Requested Dr. Key examine patient from a postoperative standpoint to again rule out concerns for compartment syndrome. Dr. Key aware. Improvement in WBC today. Hgb 8.0. (3) Diarrhea: Code(s): R19.7 - Diarrhea, unspecified Status: Acute Assessment and Plan: Patient denies recurrent diarrhea overnight or today. (4) History of diverticulitis: Code(s): Z87.19 - Personal history of other diseases of the digestive system Status: Acute Assessment and Plan: Patient has a history of diverticulitis in 2019 requiring bowel rest and hospitalization. Today she complains of lower abdominal pain, cramping and diarrhea. WBC elevated yesterday. Recommended repeat CBC today and hospitalist consult for further medical evaluation. Plan Discussed postoperative labs, vitals, physical exam, CT scan and radiographs with Dr. Key. Requested further evaluation by Dr. Key prior to releasing patient for discharge. Will defer further plans for discharge to Dr. Key. Subjective Subjective Date/Time Seen: 12/15/22 09:19 Post Op day: 3 Interval history: POD #3: Left TKA Patient reports improvement in abdominal pain today. No reports of diarrhea overnight or this morning. Pain well controlled in the left knee. Working well with PT/OT. Discussion regarding CT scan results and discharge plans. Review of Systems Review of Systems: All systems reviewed & are unremarkable except as noted in HPI and below Exam Const: General: comfortable and no acute distress Resp: Effort & Inspection: normal respiratory effort Cardio: Rate: regular rate Rhythm: regular rhythm GI: GI Palp: Yes Soft to palpation, No Tenderness to palpation present (GI) and No Guarding due to palpation present (GI) Skin: General skin exam: wounds noted (see extremity assessment ) Wounds: wounds noted (see extremity assessment ) Neuro: Cognition (Neuro): normal cognition Other: NV intact. Moves toes. Sensation intact to light touch. +ankle dorsiflexion/plantarflexion. Extrem: Left lower extremity: normal to inspection, normal capillary refill, knee Details: tenderness (diffuse ) Location: of the patella, swelling (moderate consistent to recent surgery ), abnormal ROM (limited due to recent surgery ) Details: pain with active ROM (tolerable ) and pain with passive ROM (tolerable ) and ecchymo
[2022-12-15] MEDS: CYANOCOBALAMIN 1,000 MCG TABLET 5000 MCG PO (09:39)
--- NOTE | 2022-12-15 12:34 | PM.IMPN ---
Progress Note: A&P Assessment and Plan (1) Diarrhea: Code(s): R19.7 - Diarrhea, unspecified Status: Acute Assessment and Plan: 12/14/22 hx of diverticulitis, PE reveled left suprapubic/groin tenderness with some LLQ involvement CT abd/pelvis w, w/o con 1. Moderate inflammatory change in the flexor musculature of the partially visualized left leg including foci of gas in the muscles and fat planes. Finding could reflect intramuscular abscess versus change from recent total knee arthroplasty. Recommend surgical evaluation and close clinical monitoring for compartment syndrome. These findings and recommendations were discussed with PITO Arreola on [address] [place] [address] at 1945 hours on 12/14/2022. 2. Mild gallbladder distention which could be due to fasting state. Correlate for right upper quadrant tenderness. WBC remains elevated despite being 2 days postop, 20.8 hyponatremia - 129, likely due to hypovolemia. will fluid resus. 1L NS bolus, then 1L at 100 ml/hr monitor CBC, renal function and electrolytes start Metamucil QAM if diarrhea continues, consider stool culture/c. diff culture. most recent atb use on 12/12, ancef 2G given x2. 12/15/22: WBC 13.9, sodium 133, potassium 3.3 Will order 40 mEq potassium x1 today Diarrhea subsided (2) Left lower quadrant abdominal pain: Code(s): R10.32 - Left lower quadrant pain Status: Acute Assessment and Plan: see above (3) S/P total knee arthroplasty: Qualifiers: Laterality: left Qualified Code(s): Z96.652 - Presence of left artificial knee joint Code(s): Z96.659 - Presence of unspecified artificial knee joint Status: Acute Assessment and Plan: 12/14/22: surgery performed on 12/12 ortho managing continue PT/OT. Use walker, high fall risk. continue pain control. ice knee, protect skin and monitor dressing DVT prophylaxis: currently managed by Ortho, reduced dose of aspirin to ASA 81 b.i.d. due to concern with volume of swelling and ecchymosis. Continue SCDs. bowel regimen held due to new diarrhea given CT findings: will order lactic acid w/reflex and reassess LLE vasc. Ortho updated. will defer further imaging to ortho. Reassessment at 2330 due to c/f for compartment syndrome on imaging: strong DP pulse, good color to LLE, significant ecchymosis around knee with no change to swelling. no paraesthesias. able to ambulate to the restroom. patient educated on s/s of compartment syndrome and discussed CT findings with patient - no diverticulitis. compartment syndrome v abscess v normal post-surgical changes. all questions answered. RN will monitor vasculature through the night. 12/15/22: continue PT OT contine pain control rest, ice, elevation to left knee patient aspirin 81 b.i.d., willl defer to ortho team for DVT prophylaxis for outpatient. Time Spent With Patient Time with patient: Greater than 35 minutes Subjective Date/time seen: 12/15/22 12:34 Interval history: 12/14/22: POD #3: Left TKA Patient reports improvement in abdominal pain today. No reports of diarrhea overnight or this morning. Pain well controlled in the left knee. Working well with PT/OT. Discussion regarding CT scan results and discharge plans. 12/15/22: postop day 4 from left total knee replacement On examination today she is alert and oriented x4, pain is well controlled, and she is sitting on the side of the bed. She denies any other complaints today. VSS, She is afebrile, and on room air. labs today show white blood cell count of 13.9, hemoglobin 8.0, hematocrit 24.7, platelet count 143, sodium 133, potassium 3.3, BUN 17, creatinine 0.9, Mag 2.3. Patient will be given 40 mEq of potassium for replacement. Otherwise patient okay for discharge from a medical standpoint. Review of Systems Review of Systems: All systems reviewed & are unremarkable except as noted in HPI and below Constitutional: Constituti
--- NOTE | 2022-12-15 13:19 | PM.PNORT ---
Progress Note: A&P Assessment and Plan (1) S/P total knee arthroplasty: Qualifiers: Laterality: left Qualified Code(s): Z96.652 - Presence of left artificial knee joint Code(s): Z96.659 - Presence of unspecified artificial knee joint Status: Acute Assessment and Plan: S/P LEFT TKA DOING WELL AND IMPROVING. SHE STILL HAS A NEED FOR REHAB DUE TO SLOW PROGRESS WITH PT. SHE WILL DCd TO REHAB AND F/U IN 3 WEEKS IN MY OFFICE Subjective Subjective Date/Time Seen: 12/15/22 13:19 Interval history: POD 3 DPOING WELL. SHE DENIES ANY CP OR SOB. SHE IS IMPROVING WITH PT NAD HER PAIN IS IMPROVING. SHE HAS NO THIGH PAIN. HER HEMATOMA IS STABLE. SHE DENIES ANY CALF PAIN. Exam Extrem: Other: VSS AFEBRILE DRESSING WITH MILD HEMATOMA DRAINAGE, NV INTACT NEG HOMANS SIGN, CALF AND THIGH SOFT. DRESSING CHANGED NO SIGN OF INFECTION. GOOD ANKLE DORSI AND PLANTAR FLEXION WITH NO PAIN IN THE CALF OR LEG Objective Data Vital Signs Vital Signs: Vital Signs - 24 hr 12/14/22 14:38 12/14/22 20:09 12/14/22 21:19 Temperature 36.9 C 37.1 C Pulse Rate 95 107 H Respiratory Rate 17 18 Blood Pressure 117/55 L 161/64 H Pulse Oximetry 94 97 94 Oxygen Delivery Room Air Fraction of Inspired Oxygen 12/15/22 07:54 12/15/22 07:54 12/15/22 07:55 Temperature 36.7 C Pulse Rate 95 95 Respiratory Rate 18 16 Blood Pressure 111/52 L Pulse Oximetry 95 95 Oxygen Delivery Room Air Fraction of Inspired Oxygen 21 12/15/22 08:26 Temperature Pulse Rate Respiratory Rate Blood Pressure Pulse Oximetry Oxygen Delivery Room Air Fraction of Inspired Oxygen Intake/Output Intake/Output: Intake & Output 12/12/22 12/13/22 12/14/22 12/15/22 23:59 23:59 23:59 23:59 Intake Total 837 453 2800 1360 Output Total 75 50 400 Balance 648 281 2853 960 Meds/Results Medications: Active Medications Generic Name Dose Route Start Last Admin Trade Name Freq PRN Reason Stop Dose Admin Ascorbic Acid 1,000 mg 12/13/22 09:00 12/15/22 08:31 Ascorbic Acid 500 Mg Tablet PO 1,000 mg DAILY NELLIE Administration Aspirin 81 mg 10/18/23 21:00 12/15/22 08:32 Aspirin 81 Mg Chewable Tablet PO 81 mg Q12HR NELLIE Administration Atorvastatin Calcium 40 mg 12/12/22 21:00 12/14/22 20:59 Atorvastatin 40 Mg Tablet PO 40 mg HS NELLIE Administration Calcium Carbonate 500 mg 12/13/22 09:00 12/15/22 08:32 Calcium Carbonate (Oscal) 500 Mg Tablet PO 01/12/23 08:59 500 mg DAILY NELLIE Administration Celecoxib 200 mg 12/12/22 17:00 12/15/22 08:31 Celecoxib 200 Mg Capsule PO 200 mg BIDWM NELLIE Administration Cyanocobalamin 5,000 mcg 12/13/22 09:00 12/15/22 09:39 Cyanocobalamin 1,000 Mcg Tablet PO 5,000 mcg DAILY NELLIE Administration Diazepam 5 mg 12/12/22 16:10 Diazepam (*Crx) 5 Mg Tablet PO Q8H PRN Spasms Diphenhydramine HCl 25 mg 12/12/22 16:10 Diphenhydramine Hcl Inj 50 Mg/Ml Vial IV PUSH Q6H PRN Itching Famotidine 20 mg 12/12/22 21:00 12/15/22 08:33 Famotidine 20 Mg Tablet PO 20 mg Q12HR NELLIE Administration Gabapentin 100 mg 12/13/22 13:00 12/15/22 08:33 Gabapentin 100 Mg Capsule PO 100 mg TID NELLIE Administration Loratadine 10 mg 12/12/22 16:10 Loratadine 10 Mg Tablet PO DAILY PRN Allergy Symptoms Naloxone HCl 0.1 mg 12/12/22 16:10 Naloxone Hcl 0.4 Mg/Ml Vial IV PUSH Q2M PRN Opiate Reversal Ondansetron HCl 4 mg 12/12/22 16:10 Ondansetron Inj 4 Mg/2 Ml Vial IV PUSH Q4H PRN Nausea And Vomiting Oxycodone/Acetaminophen 1 tablet 12/12/22 16:10 12/15/22 06:58 Oxycodone/Acetaminophen (*Crx) 5-325 Mg Tablet PO 1 tablet Q4H PRN Administration Pain Rated 4-6 Oxycodone/Acetaminophen 2 tablet 12/12/22 16:10 12/13/22 12:49 Oxycodone/Acetaminophen (*Crx) 5-325 Mg Tablet PO 2 tablet Q6H PRN Administration Pain Rated 7-10 Pantopraz
--- NOTE | 2022-12-15 13:47 | PM.DS ---
DS: Admitting Diagnosis Discharge Date 12/15/2022 Admitting Diagnosis Left TKA DS: Discharge Diagnosis Discharge Diagnosis (1) S/P total knee arthroplasty: Qualifiers: Laterality: left Qualified Code(s): Z96.652 - Presence of left artificial knee joint Code(s): Z96.659 - Presence of unspecified artificial knee joint Status: Acute Assessment and Plan: POD #3 : Left TKA WBC trending down to 13.9 today. HgB 8.0. Sodium at 133 and Potassium 3.3, medicine team following. Appreciate recommendations. Continue PT/OT. WBAT. Walker. HIGH FALL RISK. Continue pain control. Ice knee. Protect skin. DVT prophylaxis with Aspirin 81 mg PO BID- decreased dose due to concern regarding ecchymosis of the left knee per Dr. Key. Changes to DVT prophylaxis dosing deferred to Dr. Key. SCDs. Incentive Spirometry Use reviewed. Monitor Dressing. Change prior to discharge. Bowel Regimen- HOLD due to diarrhea Dispo: BALDOMERO approved for discharge today. Discharge pending medical clearance and clearance from Dr. Key at this time. (2) Left lower quadrant abdominal pain: Code(s): R10.32 - Left lower quadrant pain Status: Acute Assessment and Plan: Abdominal CT scan reveals moderate inflammatory change in the flexor musculature of the partially visualized left leg including foci of gas in the muscles and fat planes. Radiologist with concerns for compartment syndrome. Clinically, patient has good pedal pulses, sensation intact in the LLE. AROM/PROM of the left knee without severe pain. Continued ecchymosis/swelling of the left knee noted. IR/ER of the left hip without severe pain. Requested Dr. Key examine patient from a postoperative standpoint to again rule out concerns for compartment syndrome. Dr. Key aware. Improvement in WBC today. Hgb 8.0. (3) Diarrhea: Code(s): R19.7 - Diarrhea, unspecified Status: Acute Assessment and Plan: Patient denies recurrent diarrhea overnight or today. (4) History of diverticulitis: Code(s): Z87.19 - Personal history of other diseases of the digestive system Status: Acute Assessment and Plan: Patient has a history of diverticulitis in 2019 requiring bowel rest and hospitalization. Today she complains of lower abdominal pain, cramping and diarrhea. WBC elevated yesterday. Recommended repeat CBC today and hospitalist consult for further medical evaluation. Plan Discussed postoperative labs, vitals, physical exam, CT scan and radiographs with Dr. Key. Requested further evaluation by Dr. Key prior to releasing patient for discharge. Will defer further plans for discharge to Dr. Key. DS: Summary Hospital Course Reason for hospitalization: Left TKA Hospital Course: 77 year old female admitted s/p Left TKA for postoperative medical management, pain control and mobilization with PT/OT. Patient has slow progress with PT and OT. She also began developing loose stools on postop day 2 and was concerned for a history of diverticulitis. Hospitalist consult requested. Patient underwent a CT scan which revealed concerns for compartment syndrome however this has been ruled out. No evidence of diverticulitis. White blood cell count stabilizingThe patient has been cleared to be discharged to [facility] at this time. All discharge care instructions reviewed at depth. New medications reviewed. Follow up planned for 3 weeks in the outpatient orthopedic clinic with Dr. Key. Dr. Key in agreeance with discharge at this time. Status at Discharge Functional status at discharge: uses cane/walker Overall status at discharge: patient is progressing back to baseline Time Spent with Patient Time attestation: Total time spent providing and/or coordinating discharge services: Exam Const: General: comfortable and no acute distress Resp: Effort & Inspection: normal respiratory effort Cardio: Rate: regular rate Rhy
[2022-12-15] MEDS: POTASSIUM CHLORIDE 20 MEQ ER TABLET 40 MEQ PO (15:01)
== END 2022-12-15 16:15 | DRG 470 ==
LOC: ANHSURGERY 15:44 → ANH2MED 15:44
PROVIDERS: Nurse Practitioner Family; Student in an Organized Health Care Education/Training Program; Admitting Provider Orthopaedic Surgery; PCP Family Medicine; Visit Provider Orthopaedic Surgery
PROC: 0SRD0J9 Replacement of Left Knee Joint with Synthetic Substitute, Cemented, Open Approach (ICD-10-PCS; CPT 27447; principal; 2022-12-12 11:00)
DX: M17.0 Bilateral primary osteoarthritis of knee (principal); E87.1 Hypo-osmolality and hyponatremia; R58 Hemorrhage, not elsewhere classified; R19.7 Diarrhea, unspecified; E66.9 Obesity, unspecified; I10 Essential (primary) hypertension; Z68.37 Body mass index [BMI] 37.0-37.9, adult; Z98.41 Cataract extraction status, right eye; Z98.42 Cataract extraction status, left eye; Z90.710 Acquired absence of both cervix and uterus; Z96.641 Presence of right artificial hip joint; Z20.822 Contact with and (suspected) exposure to COVID-19; Z87.891 Personal history of nicotine dependence
CPT/HCPCS: 36415; 73560; 74177; 80048; 81001; 83605; 83735; 85025; 85027; 94640; 97110; 97116; 97161; 97165; 97530; 97535; A9270; C1713; C1776; G0378; J0171; J0690; J1100; J1170; J1885; J2250; J2270; J2371; J2405; J2704; J2795; J3010; J7030; J7120; Q9967

== ENCOUNTER 2023-02-01 13:15 | Outpatient (RCR) | payer MEDICARE, OTHER, SELFPAY ==
--- NOTE | 2023-01-05 16:27 | PTOPEVAL1 ---
Assessment and note entered by Ana María Porter, PT Evaluation Information Assessment Status Evaluation Diagnosis left total knee replacement 12/12/22 (z96.659) Therapy conditions pain in left knee, gait abnormality, swelling Subjective Information Went to Rehab 12/15/22 and discharged home on . Has been doing Home health, was discharged yesterday. Had been icing 2x daily when first came home, but was so tired after getting home didn't have the energy. Earlier this week noted incresaed swelling and attributes this to her heating blanket and restarted her icing early in the week. Last two days hasn't been able to ice more than once. Has stopped oxycodone ~6 days ago, has been using Tylenol, recently 2 pills x daily. Scheduled to have right knee done in 3 months. Reported Pain Level Pain Score 2: Self Report Plan of Care Interventions Electrical Stimulation,Hot Pack/Cold Pack,Manual Therapy,Neuro Re-education,Patient/Caregiver Educati,Therapeutic Activities,Therapeutic Exercise PT Services Indicated Yes Treatment Frequency and 2x weekly x 8 weeks Duration These treatments will address the objective and functional deficits as defined above. The patient will be advanced safely and appropriately in order for the patient to progress towards his/her prior level of function. Additional exercises will be introduced and as well as a comprehensive home exercise program upon discharge, if needed, ?to ensure carryover of functional gains achieved in the clinic. This treatment plan has been reviewed and agreement upon by the patient.
--- NOTE | 2023-01-05 16:28 | OPREHPOC ---
Outpatient Therapy Plan of Care This is a Multidisciplinary Plan of Care that may contain components documented by all disciplines (PT, OT, and ST.) PT Problem 1 PT Problem #1 Knowledge Deficit PT Goal 1 Goal Pt will be independent in HEP Pt will verbalize understanding of diagnosis and prognosis Target Visit 8 PT Problem 2 PT Problem #2 Pain PT Goal 1 Goal Pt will report greatest pain level at 5/10 or less to improve ADLs Target Visit 8 PT Goal 2 Goal Pt will report highest pain rating at 3/10 to show improved healing Target Visit 16 PT Problem 3 PT Problem #3 Impaired Range of Motion PT Goal 1 Goal Pt will demo AROM left knee of 3-115 for improved mobility Target Visit 8 PT Goal 2 Goal Pt will demo AROm of 0-120 for functional motion related to stair climbing for in home mobility Target Visit 16 PT Problem 4 PT Problem #4 Impaired Gait PT Goal 1 Goal Pt will demo gait without AD without abnormality involving the LLE Target Visit 16
--- NOTE | 2023-01-24 14:24 | PCPTNOTE ---
Patient called & cancelled scheduled appointment this date due to personal stressors today. Will continue plan of care as able
--- NOTE | 2023-02-01 16:52 | PTOPDC ---
Assessment and note entered by Ana María Porter, PT Assessment Status Discharge Diagnosis left total knee replacement 12/12/22 Subjective Information Reports has one step into home and does this fine. In garage has a large step that steps down sideways for this. Saw her primary, has meloxicam for her back pain and shooting pain and right knee pain. Was only having pain with first getting up. Self-percieved improvement left knee: 90-95%. Reported Pain Level Pain Score 0: Self Report Assessment PT Clinical Summary Pt dasia's greatly improved appearance of scar tissue, color and swelling of knee, has met her goals for range, and pain with only mild deficit in gait. Pt also dasia's today very safe and functional navigation of 17 steps in reciprocal pattern. Pt appears very knowledgable and motivated in her therapy and has expressed in the past difficulty with attending therapy appointments. Thus as patient appears functional, minimal pain, appropriate range and strength, and olegarioo's good knowledge of diagnosis and safety, she is being discharged from therapy at this time.
== END 2023-02-02 08:27 | disposition home or self-care (01) ==
LOC: ANHHIPT 13:15
PROVIDERS: PCP Family Medicine; Visit Provider Orthopaedic Surgery
DX: Z47.1 Aftercare following joint replacement surgery (principal); Z96.652 Presence of left artificial knee joint
CPT/HCPCS: 97014; 97110; 97116; 97140; 97162; 97750; G0283